=== PATIENT | female | born 1965 | race American Indian/Alaskan Native ===

== ENCOUNTER 2018-08-23 06:56 | Emergency (ER) | payer MEDICARE, OTHER ==
[2018-08-23 07:13] VITALS: BP 118/85; PULSE 84; RESP 18; TEMP 98.3; O2SAT 98
--- NOTE | 2018-08-23 07:43 | C.PDOC ---
History Of Present Illness 52 yo female w/PMHx of HIV, legally blind, chronic pain, brought to ED for evaluation of " legs pain". Pt reports, " I walk a lot and now my legs hurts". Pt admits, previous hx of " legs neuropathy", takes percocet for pain " does not help any more, and sometime feel my vertigo". Pt very poor historian, no more info able to obtain. But pt denies known recent injury, saddle anesthesia, incontinence, denies deformity or weakness to legs. Pt was noted to be ambulatory in ED with baseline gait w/assistance of cane. FYI: RX review, multiple recent refill on Zolpidem, percocet, gabapentin, Tylenol #3. Time Seen by Provider: 08/23/18 07:20 Chief Complaint (Nursing): Lower Extremity Problem/Injury History Per: Patient Past Medical History Reviewed: Historical Data, Nursing Documentation, Vital Signs Vital Signs: Last Vital Signs Temp 98.3 F 08/23/18 07:04 Pulse 84 08/23/18 07:04 Resp 18 08/23/18 07:04 BP 118/85 08/23/18 07:04 Pulse Ox 98 08/23/18 07:04 - Medical History PMH: Back Problems, HIV, Chronic Pain Family History: States: No Known Family Hx - Social History Hx Alcohol Use: No Hx Substance Use: No - Immunization History Hx Tetanus Toxoid Vaccination: No Hx Influenza Vaccination: No Hx Pneumococcal Vaccination: Yes Review Of Systems Except As Marked, All Systems Reviewed And Found Negative. Constitutional: Negative for: Fever Genitourinary: Negative for: Incontinence Musculoskeletal: Positive for: Back Pain Neurological: Negative for: Weakness, Numbness Physical Exam - Physical Exam Appears: Well, Non-toxic, No Acute Distress Skin: Normal Color, Warm, No Ecchymosis Head: Normacephalic Eye(s): bilateral: Other (vertical nystagmus) Throat: No Drooling Neck: Supple Cardiovascular: Rhythm Regular, No Murmur, No JVD Respiratory: No Stridor, No Wheezing Gastrointestinal/Abdominal: Soft, No Tenderness Back: No Vertebral Tenderness Extremity: Normal ROM, No Tenderness, No Pedal Edema, No Calf Tenderness, No Deformity, No Swelling Extremity: Bilateral: Atraumatic DTR: Knee (R): 2+, Knee (L): 2+, Ankle (R): 2+, Ankle (L): 2+ Neurological/Psych: Oriented x3, Normal Speech, Normal Motor, Normal Sensation, Normal Reflexes ED Course And Treatment O2 Sat by Pulse Oximetry: 98 Progress Note: Pt was offered medication for pain, refused, reports, " I dont trust that doctor". Pt is request discahrge now. On re-eval, afebrile, hemodynamicaly stable. Non-toxic, ambulatory in ED with baseline gait. Neurologicaly intact. As per RN, pt agreed to take mediction for pain. Disposition Counseled Patient/Family Regarding: Diagnosis, Need For Followup, Rx Given - Disposition Referrals: Non [facility] Provider, [Primary Care Provider] - Disposition: HOME/ ROUTINE Disposition Time: 07:55 Condition: STABLE Additional Instructions: Follow up with PMD, PM in 2-3 days for re-evaluation. return if any new changes. Instructions: Radiculopathy Forms: [facility] (Yakut) - Clinical Impression Clinical Impression: Lumbar radiculopathy
== END 2018-08-23 08:30 | disposition home or self-care (01) ==
LOC: SUPCPDRO 06:56 → C.ER 06:56
DX: M54.16 Radiculopathy, lumbar region (principal); H54.8 Legal blindness, as defined in USA; Z21 Asymptomatic human immunodeficiency virus [HIV] infection status